=== PATIENT | female | born 1950 | race Two or more races ===

== ENCOUNTER 2021-05-02 07:45 | Inpatient (IN) | payer OTHER ==
[~2021-05-02] VITALS: Ht 152.4 cm; Wt 82.1 kg
[2021-05-02] MEDS ORDERED: METFORMIN HCL1000 M2 PO (09:44)
[2021-05-02] MEDS ORDERED: COZAAR100 MG PO (09:45)
[2021-05-02] MEDS ORDERED: CARVEDILOL6.25 MG (09:45)
[2021-05-02] MEDS ORDERED: ATORVASTATIN CA40 MG PO (09:46)
[2021-05-02] MEDS ORDERED: CLONAZEPAM0.5 MG PO (09:47)
[2021-05-02] MEDS ORDERED: NOVOLIN 70100 UNIT/2 (09:47)
[2021-05-05] MEDS ORDERED: FARXIGA5 MG (08:43)
[2021-05-05] MEDS ORDERED: FLONASE16 GM (08:43)
[2021-05-05] MEDS ORDERED: HUMULIN 70100 UNIT/2 (08:43)
[2021-05-05] MEDS ORDERED: CLONAZEPAM2 MG (08:43)
[2021-05-05] MEDS ORDERED: CLOTRIMAZOLE-BE15 G1 (08:43)
[2021-05-05] MEDS ORDERED: PROAIR HFA8.5 GM (08:43)
[2021-05-05] MEDS ORDERED: SYMBICORT 16010.2 GM (08:44)
[2021-05-05] MEDS ORDERED: MONTELUKAST SOD10 MG (08:44)
[2021-05-05] MEDS ORDERED: ST. JOSEPH ASPI81 M2 (08:45)
[2021-05-05] MEDS ORDERED: METFORMIN HCL1000 M3 (08:45)
[2021-05-05] MEDS ORDERED: HYDROCHLOROTHIA25 MG (08:45)
[2021-05-05] MEDS ORDERED: REFRESH RELIEVA10 ML (08:46)
[2021-05-05] MEDS ORDERED: KETOTIFEN FUMARA5 ML (08:46)
[2021-05-05] MEDS ORDERED: DULOXETINE HCL30 MG (08:46)
== END 2021-05-07 15:44 | disposition home or self-care (01) | DRG 742 ==
LOC: O/R 05-04 07:19 → SURH 05-04 07:45 → OB/GYN 05-04 14:29
PROVIDERS: ADMIT Specialist; ATTEND Specialist
PROC: 0DNW0ZZ Release Peritoneum, Open Approach (ICD-10-PCS; 2021-05-04)
PROC: 0DNN0ZZ Release Sigmoid Colon, Open Approach (ICD-10-PCS; 2021-05-04)
PROC: 0DBU0ZZ Excision of Omentum, Open Approach (ICD-10-PCS; 2021-05-04)
PROC: 5A09357 Assistance with Respiratory Ventilation, Less than 24 Consecutive Hours, Continuous Positive Airway Pressure (ICD-10-PCS; 2021-05-04)
PROC: 0UB40ZX Excision of Uterine Supporting Structure, Open Approach, Diagnostic (ICD-10-PCS; principal; 2021-05-04 10:45)
DX: D28.2 Benign neoplasm of uterine tubes and ligaments (principal); J95.89 Other postprocedural complications and disorders of respiratory system, not elsewhere classified; J98.11 Atelectasis; E87.2 Acidosis; R09.02 Hypoxemia; D19.1 Benign neoplasm of mesothelial tissue of peritoneum; N99.4 Postprocedural pelvic peritoneal adhesions; I12.9 Hypertensive chronic kidney disease with stage 1 through stage 4 chronic kidney disease, or unspecified chronic kidney disease; E11.22 Type 2 diabetes mellitus with diabetic chronic kidney disease; N18.31 Chronic kidney disease, stage 3a; E66.8 Other obesity; E78.5 Hyperlipidemia, unspecified; Z53.31 Laparoscopic surgical procedure converted to open procedure; Z79.4 Long term (current) use of insulin; Z79.84 Long term (current) use of oral hypoglycemic drugs

== ENCOUNTER 2021-05-14 11:17 | Inpatient (IN) | payer OTHER ==
[~2021-05-14] VITALS: Ht 154.9 cm; Wt 82.1 kg
[~2021-05-14 11:17] MED LIST: ATORVASTATIN CA40 MG PO; CARVEDILOL6.25 MG; CLONAZEPAM0.5 MG PO; CLONAZEPAM2 MG; CLOTRIMAZOLE-BE15 G1; COZAAR100 MG PO; DULOXETINE HCL30 MG; FARXIGA5 MG; FLONASE16 GM; HUMULIN 70100 UNIT/2; HYDROCHLOROTHIA25 MG; KETOTIFEN FUMARA5 ML; METFORMIN HCL1000 M2 PO; METFORMIN HCL1000 M3; MONTELUKAST SOD10 MG; NOVOLIN 70100 UNIT/2; PROAIR HFA8.5 GM; REFRESH RELIEVA10 ML; ST. JOSEPH ASPI81 M2; SYMBICORT 16010.2 GM
== END 2021-06-09 17:23 | disposition home or self-care (01) | DRG 857 ==
LOC: ER 11:17 → SURH 05-15 07:49
PROVIDERS: ADMIT Obstetrics & Gynecology; ATTEND Obstetrics & Gynecology
PROC: BW21ZZZ Computerized Tomography (CT Scan) of Abdomen and Pelvis (ICD-10-PCS; 2021-05-15)
PROC: 02HV33Z Insertion of Infusion Device into Superior Vena Cava, Percutaneous Approach (ICD-10-PCS; 2021-05-15)
PROC: 3E0F7GC Introduction of Other Therapeutic Substance into Respiratory Tract, Via Natural or Artificial Opening (ICD-10-PCS; 2021-05-15)
PROC: BT43ZZZ Ultrasonography of Bilateral Kidneys (ICD-10-PCS; 2021-05-15)
PROC: 0W9J0ZZ Drainage of Pelvic Cavity, Open Approach (ICD-10-PCS; principal; 2021-05-30)
PROC: 30243N1 Transfusion of Nonautologous Red Blood Cells into Central Vein, Percutaneous Approach (ICD-10-PCS; 2021-06-01)
DX: T81.41XA Infection following a procedure, superficial incisional surgical site, initial encounter (principal); L02.211 Cutaneous abscess of abdominal wall; N39.0 Urinary tract infection, site not specified; N17.8 Other acute kidney failure; J90 Pleural effusion, not elsewhere classified; J98.11 Atelectasis; E11.65 Type 2 diabetes mellitus with hyperglycemia; D63.8 Anemia in other chronic diseases classified elsewhere; B96.1 Klebsiella pneumoniae [K. pneumoniae] as the cause of diseases classified elsewhere; B95.2 Enterococcus as the cause of diseases classified elsewhere; E66.09 Other obesity due to excess calories; E78.49 Other hyperlipidemia; Z79.4 Long term (current) use of insulin; Z20.822 Contact with and (suspected) exposure to COVID-19